=== PATIENT | female | born 1995 | race Caucasian/White ===

== ENCOUNTER → 2024-05-29 09:30 | Outpatient (CLI) | payer OTHER, SELFPAY ==
--- NOTE | 2024-05-29 09:38 | DI.US.S_ITS ---
PROCEDURE: US PELVIC COMPLETE INDICATIONS: dysmenorrhea TECHNIQUE: Real-time scanning was performed of the pelvic organs, with image documentation. Additional endovaginal scanning was necessary due to incomplete visualization of the adnexal and endometrial structures by transabdominal scanning. COMPARISON: [facility], US, US PELVIC COMPLETE WITH TRANSVAGINAL, 12/22/2021, 14:05. FINDINGS: Uterus: Uterus is anteverted and normal in size at 7.4 x 4.3 x 3.2 cm. The myometrium is homogeneous. The endometrium measures 3 mm in combined thickness. Ovaries: The right ovary measures 2.9 x 2.6 x 2.2 cm, with a calculated ovarian volume of 8.5 cc. The left ovary measures 3.3 x 2.8 x 2.1 cm, with a calculated ovarian volume of 10 cc. The ovaries have a normal sonographic appearance. Greater than 12 follicles are present in each ovary. No adnexal masses are seen. Other: No pathologic free abdominal or pelvic fluid. IMPRESSION: 1. Polycystic ovarian morphology, which can be associated with polycystic ovarian syndrome. 2. Otherwise, no acute sonographic abnormality of the uterus or ovaries. We strive to produce accurate, complete, and clear reports of imaging services. To assist us in improving patient care, this report was composed using standard report templates and voice recognition software. Therefore, it may contain abnormal punctuation, insertions and/or omissions. Occasional wrong-word or sound-alike substitutions may occur. Though we review the report and make efforts to correct it, we do recommend that the report be read carefully in proper context to recognize any text inaccuracies. Dictated by: Pawel Murillo M.D. on 05/30/2024 at 9:40 Approved by: Pawel Murillo M.D. on 05/30/2024 at 9:53
== END ==
PROVIDERS: Referring Provider Obstetrics & Gynecology; Visit Provider Obstetrics & Gynecology
DX: N94.6 Dysmenorrhea, unspecified (principal)
CPT/HCPCS: 76830; 76856